=== PATIENT | female | born 1995 | race Two or more races ===

== ENCOUNTER 2023-01-25 04:46 | Emergency (ER) | payer OTHER ==
[~2023-01-25] VITALS: Ht 160 cm; Wt 96.2 kg
[2023-01-25 06:17] LABS: HEMATOCRIT 30.2 % (36.0-45.00); HEMOGLOBIN 10.4 g/dL (12.0-15.00); MEAN CELL VOLUME 88.8 fL (80.00-100.00); MEAN CORPUSCULAR HEMOGLOBIN 30.6 pg (27.00-32.0); MEAN CORPUSCULAR HGB CONC 34.5 g/dl (32.0-36.0); PLATELET COUNT 164 K/uL (150-450); RED CELL DISTRIBUTION WIDTH 14.2 % (11.5-14.5)
[2023-01-25 06:22] LABS: PH,URINE 6.5 (5.0-8.0); URINE APPEARANCE Cloudy; URINE BILIRRUBIN Negative (NEGATIVE); URINE BLOOD Negative; URINE COLOR Yellow; URINE GLUCOSE Negative (NEGATIVE); URINE LEUKOCYTE Large; URINE NITRATE Negative; URINE PROTEIN Negative (NEGATIVE)
[2023-01-25 06:25] LABS: URINE EPITHELIAL CELLS 179.8 uL (0.0-38.8); URINE RBC 2.7 uL (0.0-20.8); URINE WBC 271.3 uL (0.0-23.2)
[2023-01-25 07:00] LABS: URINE BACTERIA > 9821.5 uL (0.0-1933)
[2023-01-25 07:31] LABS: ALBUMIN 2.7 gm/dL (3.4-5.0); BILIRUBIN TOTAL 0.39 mg/dL (0.3-1.2); CALCIUM 8.7 mg/dL (8.5-10.1); CREATININE SERUM 0.52 mg/dL (0.55-1.02); GFR 141.45; GLOBULINA 3.7 G/DL (2.4-3.5); POTASSIUM 4.32 mEq/L (3.5-5.1); TOTAL PROTEIN 6.4 gm/dL (6.4-8.2)
== END 2023-01-25 11:03 | disposition home or self-care (01) ==
LOC: ER 04:46
PROVIDERS: General Practice
DX: O99.512 Diseases of the respiratory system complicating pregnancy, second trimester (principal); Z3A.27 27 weeks gestation of pregnancy; R06.02 Shortness of breath; O23.32 Infections of other parts of urinary tract in pregnancy, second trimester; N39.0 Urinary tract infection, site not specified

== ENCOUNTER 2023-04-09 14:30 | Inpatient (IN) | payer OTHER ==
[~2023-04-09] VITALS: Ht 160 cm; Wt 3.2 kg
[2023-04-24 17:29] LABS: HEMATOCRIT 33.2 % (36.0-45.00); HEMOGLOBIN 11.2 g/dL (12.0-15.00); MEAN CELL VOLUME 86.1 fL (80.00-100.00); MEAN CORPUSCULAR HEMOGLOBIN 29.1 pg (27.00-32.0); MEAN CORPUSCULAR HGB CONC 33.8 g/dl (32.0-36.0); PLATELET COUNT 172 K/uL (150-450); RED BLOOD COUNT 3.86 M/uL (4.00-6.00); RED CELL DISTRIBUTION WIDTH 15.4 % (11.5-14.5)
[2023-04-24] MEDS ORDERED: PRENATAL CAPLE1 EAC1 PO (17:47)
[2023-04-24] MEDS ORDERED: OXYTOCIN 500 ML IV ONE (18:00)
[2023-04-24] MEDS ORDERED: RINGERS SOLUTION,LACTATED 1,000 ML IV SCH (18:00)
[2023-04-24 18:28] LABS: ALBUMIN 2.7 gm/dL (3.4-5.0); BILIRUBIN TOTAL 0.58 mg/dL (0.3-1.2); CALCIUM 8.6 mg/dL (8.5-10.1); CREATININE SERUM 0.6 mg/dL (0.55-1.02); GFR 119.92; GLOBULINA 3.7 G/DL (2.4-3.5); POTASSIUM 3.93 mEq/L (3.5-5.1); TOTAL PROTEIN 6.4 gm/dL (6.4-8.2)
[2023-04-24 18:42] LABS: INR < 0.93; PARTIAL THROMBOPLASTIN TIME 27.5 SECONDS (22.0-34.0); PROTHROMBIN TIME 9.6 SECONDS (9.0-11.5)
[2023-04-24] MEDS ORDERED: CHLORHEXIDINE GLUCONATE 120 ML BOTTLE TOP ONE (20:29)
[2023-04-24] MEDS ORDERED: LIDOCAINE HCL 100 MG/10ML VIAL ONE (20:30)
[2023-04-24] MEDS ORDERED: ERYTHROMYCIN BASE 1 GM TUBE OP ONE (20:30)
[2023-04-24] MEDS ORDERED: METOCLOPRAMIDE HCL 10 MG in DEXTROSE 5 % IN WATER 50 ML IV PRN (22:30)
[2023-04-24] MEDS ORDERED: MORPHINE SULFATE 4 MG/ML VIAL IV PRN (22:30)
[2023-04-24] MEDS ORDERED: FAMOTIDINE/PF 20 MG/2 ML VIAL IV PUSH PRN (22:30)
[2023-04-25] MEDS ORDERED: AMPICILLIN SODIUM 2,000 MG VIAL IV ONE (08:00)
[2023-04-25] MEDS ORDERED: OXYTOCIN 20 UNITS/500ML RL PIGGYBAG IV SCH (09:00)
[2023-04-25] MEDS ORDERED: AMPICILLIN SODIUM 1,000 MG VIAL IV SCH (13:00)
[2023-04-25] MEDS ORDERED: CITRIC ACID/SODIUM CITRATE 30 ML BLIST.PACK PO STA (14:10)
[2023-04-25] MEDS ORDERED: CEFOXITIN SODIUM 2,000 MG VIAL IV STA (14:11)
[2023-04-25] MEDS ORDERED: CITRIC ACID/SODIUM CITRATE 30 ML BLIST.PACK PO ONE (14:11)
[2023-04-25] MEDS ORDERED: CEFOXITIN SODIUM 2,000 MG VIAL IV ONE (14:11)
[2023-04-25] MEDS ORDERED: OXYTOCIN 10 UNITS/ML VIAL ONE (14:21)
[2023-04-25] MEDS ORDERED: ERYTHROMYCIN BASE 3.5 GM OINT...G. OP ONE (14:22)
[2023-04-25] MEDS ORDERED: AMPICILLIN SODIUM 1,000 MG VIAL ONE (17:27)
[2023-04-25] MEDS ORDERED: PROMETHAZINE HCL 25 MG/ML AMPUL IM PRN (17:45)
[2023-04-25] MEDS ORDERED: KETOROLAC TROMETHAMINE 30 MG VIAL IM ONE (17:45)
[2023-04-25] MEDS ORDERED: RINGERS SOLUTION,LACTATED 1,000 ML IV SCH (17:45)
[2023-04-25] MEDS ORDERED: MEPERIDINE HCL/PF 50 MG,MEPERIDINE HCL/PF 25 MG IM PRN (17:45)
[2023-04-25] MEDS ORDERED: OXYTOCIN 20 UNITS in RINGERS SOLUTION,LACTATED 1,000 ML IV SCH (17:45)
[2023-04-25] MEDS ORDERED: KETOROLAC TROMETHAMINE 30 MG VIAL ONE (18:52)
[2023-04-25] MEDS ORDERED: CEFAZOLIN SODIUM 1,000 MG VIAL IV SCH (21:00)
[2023-04-25] MEDS ORDERED: SIMETHICONE 125 MG CAPSULE PO SCH (21:00)
[2023-04-25 21:20] LABS: HEMATOCRIT 27.6 % (36.0-45.00); HEMOGLOBIN 9.2 g/dL (12.0-15.00); MEAN CELL VOLUME 84.8 fL (80.00-100.00); MEAN CORPUSCULAR HEMOGLOBIN 28.1 pg (27.00-32.0); MEAN CORPUSCULAR HGB CONC 33.2 g/dl (32.0-36.0); PLATELET COUNT 157 K/uL (150-450); RED BLOOD COUNT 3.26 M/uL (4.00-6.00); RED CELL DISTRIBUTION WIDTH 15.6 % (11.5-14.5)
[2023-04-25 22:44] LABS: ABG PH 7.268 (7.35-7.45); ABG PO2 29.8 mmHg (80-100); ABG pCO2 46.8 mmHg (35-45); BASE EXCESS -6.1 mmol/l; SaO2 45.4 %
[2023-04-25 22:45] LABS: BICARBONATE 20.9 mmol/l (23-25); Tco2 22.4 mmol/l; o2 21 %
[2023-04-26] MEDS ORDERED: KETOROLAC TROMETHAMINE 10 MG TABLET PO SCH
[2023-04-26 07:10] LABS: HEMATOCRIT 23.7 % (36.0-45.00); MEAN CELL VOLUME 84.5 fL (80.00-100.00); PLATELET COUNT 141 K/uL (150-450); RED BLOOD COUNT 2.81 M/uL (4.00-6.00); RED CELL DISTRIBUTION WIDTH 15.3 % (11.5-14.5)
[2023-04-26 07:22] LABS: MEAN CORPUSCULAR HEMOGLOBIN 28.8 pg (27.00-32.0)
[2023-04-26 07:23] LABS: HEMOGLOBIN 8.1 g/dL (12.0-15.00)
[2023-04-26] MEDS ORDERED: OxyCODONE HCL/APAP UD (PERCOCET) PO SCH (09:00)
[2023-04-26] MEDS ORDERED: SOD FERRIC GLUC COMPLX/SUCROSE 62.5 MG/5 ML AMPUL IV SCH (12:00)
[2023-04-26] MEDS ORDERED: ERYTHROMYCIN BASE 1 GM TUBE OP ONE (15:45)
[2023-04-26] MEDS ORDERED: OXYTOCIN 10 UNITS/ML VIAL IV ONE (15:45)
== END 2023-04-28 12:08 | disposition home or self-care (01) | DRG 788 ==
LOC: OB/GYN 04-19 14:30 → LDR 04-24 15:47 → OB/GYN 04-25 15:57
PROVIDERS: Obstetrics & Gynecology Maternal & Fetal Medicine; ADMIT Obstetrics & Gynecology; ATTEND Obstetrics & Gynecology
PROC: 4A1HXCZ Monitoring of Products of Conception, Cardiac Rate, External Approach (ICD-10-PCS; 2023-04-24)
PROC: 10D00Z1 Extraction of Products of Conception, Low, Open Approach (ICD-10-PCS; principal; 2023-04-25 15:00)
DX: O33.8 Maternal care for disproportion of other origin (principal); O34.83 Maternal care for other abnormalities of pelvic organs, third trimester; O64.0XX0 Obstructed labor due to incomplete rotation of fetal head, not applicable or unspecified; Z3A.39 39 weeks gestation of pregnancy; Z37.0 Single live birth; Z20.822 Contact with and (suspected) exposure to COVID-19

== ENCOUNTER 2023-04-10 15:33 | Outpatient (CLI) | payer OTHER | END 2023-04-10 16:53 | disposition home or self-care (01) | LOC: NST 15:33 | PROVIDERS: ATTEND Obstetrics & Gynecology Maternal & Fetal Medicine | DX: Z34.83 Encounter for supervision of other normal pregnancy, third trimester (principal) ==

== ENCOUNTER 2023-04-15 19:30 | Outpatient (CLI) | payer OTHER | END 2023-04-16 08:21 | disposition home or self-care (01) | LOC: OBS/DEL 19:30 | PROVIDERS: ATTEND Obstetrics & Gynecology | DX: O26.893 Other specified pregnancy related conditions, third trimester (principal); Z3A.38 38 weeks gestation of pregnancy; R10.2 Pelvic and perineal pain ==

== ENCOUNTER 2025-02-01 07:00 | Day surgery (SDC) | payer OTHER ==
[2025-01-28 08:28] LABS: BASO % 0.6 % (0.1-1.2); EOS # 0.12 (0.04-0.54); EOS % 2.4 % (0.7-7.0); LYMPH # 1.89 (1.18-3.74); LYMPH % 37.4 % (19.3-53.1); MEAN PLATELET VOLUME 8.90 fl (9.4-12.4); MONO # 0.33 (0.24-0.82); MONO % 6.5 % (4.7-12.5); NEUT # 2.66 (1.56-6.13); NEUT % 52.7 % (34.0-71.1); RED CELL DISTRIBUTION WIDTH 12.7 % (11.6-14.4)
[2025-01-28 08:33] LABS: URINE APPEARANCE Cloudy; URINE BILIRRUBIN Negative (NEGATIVE); URINE BLOOD Negative; URINE COLOR Yellow; URINE GLUCOSE Negative (NEGATIVE); URINE KETONE Trace (NEGATIVE); URINE LEUKOCYTE Small; URINE NITRATE Negative; URINE PROTEIN Negative (NEGATIVE); URINE UROBILINOGEN 1.0 E.U./dl
[2025-01-28 08:35] LABS: URINE EPITHELIAL CELLS 60.2 uL (0.0-38.8); URINE RBC 13.1 uL (0.0-20.8); URINE WBC 18.3 uL (0.0-23.2)
[2025-01-28 08:47] LABS: INR 1.0
[2025-01-28 08:56] VITALS: BP 105/71
[2025-01-28 09:04] LABS: URINE CAST 0.43 uL (0.0-1.40)
[2025-01-28 09:16] LABS: ALT/SGPT 28.0 U/L (12-78); AST/SGOT 13.0 U/L (15-37); BILIRUBIN TOTAL 1.54 mg/dL (0.3-1.2); BUN CREA RATIO 22.0 (7.0-25.0); CREATININE SERUM 0.74 mg/dL (0.55-1.02); GFR 92.78; GLOBULINA 3.4 G/DL (2.4-3.5); GLUCOSE FASTING 95.0 mg/dL (65-100); OSMOLALITY SERUM 282.0 MOSM/KG (275-295)
[~2025-02-01] VITALS: Ht 157.5 cm; Wt 70.3 kg
[~2025-02-01 07:00] MED LIST: PRENATAL CAPLE1 EAC1 PO
[2025-02-01] MEDS ORDERED: CEFAZOLIN SODIUM 1,000 MG VIAL ONE (07:49)
[2025-02-01] MEDS ORDERED: SUGAMMADEX SODIUM 200 MG/2 ML VIAL IV ONE (09:30)
== END 2025-02-01 12:10 | disposition home or self-care (01) ==
LOC: CIR.AMB 07:00
PROVIDERS: ATTEND Surgery
DX: K81.1 Chronic cholecystitis (principal)

== ENCOUNTER 2025-02-03 12:21 | Emergency (ER) | payer OTHER ==
[~2025-02-03] VITALS: Ht 160 cm; Wt 70.3 kg
[2025-02-03] MEDS ORDERED: CEFADROXIL500 MG PO (13:02)
[2025-02-03] MEDS ORDERED: NAPROXEN500 MG (13:02)
[2025-02-03] MEDS ORDERED: ONDANSETRON HCL 2 MG/ML VIAL IV STA (13:35)
[2025-02-03] MEDS ORDERED: FAMOTIDINE/PF 20 MG/2 ML VIAL IV PUSH STA (13:35)
[2025-02-03] MEDS ORDERED: 0.9 % SODIUM CHLORIDE 1,000 ML IV STA (13:36)
[2025-02-03] MEDS ORDERED: LACTOBACILLUS ACIDOPHILUS 1 CAP CAP PO STA (13:37)
[2025-02-03] MEDS ORDERED: FAMOTIDINE/PF 20 MG/2 ML VIAL ONE (13:51)
[2025-02-03] MEDS ORDERED: LACTOBACILLUS ACIDOPHILUS 1 CAP CAP PO ONE (13:51)
[2025-02-03] MEDS ORDERED: ONDANSETRON HCL 2 MG/ML VIAL ONE (13:51)
[2025-02-03 14:04] LABS: BASO % 0.1 % (0.1-1.2); EOS # 0.02 (0.04-0.54); EOS % 0.3 % (0.7-7.0); LYMPH # 0.50 (1.18-3.74); LYMPH % 6.3 % (19.3-53.1); MEAN PLATELET VOLUME 9.00 fl (9.4-12.4); MONO # 0.11 (0.24-0.82); MONO % 1.4 % (4.7-12.5); NEUT # 7.32 (1.56-6.13); NEUT % 91.8 % (34.0-71.1); RED CELL DISTRIBUTION WIDTH 12.5 % (11.6-14.4)
[2025-02-03 14:40] LABS: ALT/SGPT 24.0 U/L (12-78); AST/SGOT 17.0 U/L (15-37); BILIRUBIN TOTAL 1.67 mg/dL (0.3-1.2); BUN CREA RATIO 27.0 (7.0-25.0); CREATININE SERUM 0.7 mg/dL (0.55-1.02); GFR 98.93; GLOBULINA 4.0 G/DL (2.4-3.5); GLUCOSE FASTING 93.0 mg/dL (65-100); OSMOLALITY SERUM 285.0 MOSM/KG (275-295)
== END 2025-02-03 23:33 | disposition home or self-care (01) ==
LOC: ER 12:21
PROVIDERS: General Practice
DX: R11.2 Nausea with vomiting, unspecified (principal)